=== PATIENT | female | born 1970 | race American Indian/Alaskan Native ===

== ENCOUNTER 2022-05-21 07:57 | Emergency (ER) | payer MEDICARE ==
[2022-05-21 10:10] LABS: Basophils # (Auto) 0.1 K/mm3 (0.0-0.1); Basophils % (Auto) 1.3 % (0.0-1.8); Eosinophils # (Auto) 0.2 K/mm3 (0.0-0.4); Eosinophils % (Auto) 2.8 % (0.0-4.3); Hematocrit 39.9 % (30.3-42.9); Hemoglobin 13.1 gm/dl (10.1-14.3); Lymphocytes # (Auto) 2.2 K/mm3 (1.2-5.4); Lymphocytes % (Auto) 30.2 % (13.4-35.0); Mean Corpuscular HGB Conc 33 % (30-34); Mean Corpuscular Volume 89 fl (79-97); Monocytes # (Auto) 0.6 K/mm3 (0.0-0.8); Monocytes % (Auto) 8.4 % (0.0-7.3); Red Blood Count 4.48 M/mm3 (3.65-5.03); Red Cell Distribution Width 14.4 % (13.2-15.2)
[2022-05-21 10:13] LABS: Platelet Count 265 K/mm3 (140-440)
[2022-05-21 10:16] LABS: INR 0.91 (0.87-1.13)
[2022-05-21 10:17] LABS: Partial Thromboplastin Time 26.4 Sec. (24.2-36.6)
[2022-05-21 10:31] LABS: Creatine Kinase MB 2.3 ng/mL (0.0-4.0)
[2022-05-21 10:32] LABS: Blood Urea Nitrogen 8 mg/dL (7-17); Calcium 9.6 mg/dL (8.4-10.2); Hemolysis Index 42
[2022-05-21 10:42] LABS: BUN/Creatinine Ratio 13
[2022-05-21] MEDS ORDERED: KETOROLAC 30 MG/1 ML INJ IV ONE ×2 (12:02→16:00)
[2022-05-21] MEDS ORDERED: CYCLOBENZAPRINE 10 MG TAB PO ONE ×2 (12:02→16:00)
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
[2022-05-21 13:16] LABS: Alanine Aminotransferase 10 units/L (7-56); Albumin 4.3 g/dL (3.9-5); Blood Urea Nitrogen 8 mg/dL (7-17); Calcium 9.5 mg/dL (8.4-10.2); Hemolysis Index 15
[2022-05-21 13:19] LABS: BUN/Creatinine Ratio 11
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
[2022-05-21 16:53] VITALS: BP 152/86
== END 2022-05-21 16:55 | disposition home or self-care (01) ==
LOC: ED 07:57
DX: S33.5XXA Sprain of ligaments of lumbar spine, initial encounter (principal); R07.9 Chest pain, unspecified; J45.909 Unspecified asthma, uncomplicated; F17.200 Nicotine dependence, unspecified, uncomplicated; R55 Syncope and collapse; V89.2XXA Person injured in unspecified motor-vehicle accident, traffic, initial encounter; Y93.89 Activity, other specified; Y92.89 Other specified places as the place of occurrence of the external cause; Y99.8 Other external cause status
CPT/HCPCS: 36415; 70450; 71260; 72100; 74177; 80048; 80053; 82550; 82553; 84484; 85025; 85610; 85730; 96374; 99284; J1885; Q9967